=== PATIENT | male | born 1960 | race Caucasian/White ===

== ENCOUNTER 2022-10-02 05:38 | Outpatient (CLI) | payer BC ==
[~2022-10-02] VITALS: Ht 182.8 cm; Wt 93.0 kg
[2022-10-03] MEDS ORDERED: CETI10CA PO (16:40)
[2022-10-03] MEDS ORDERED: ZINC50TA51 PO (16:40)
[2022-10-03] MEDS ORDERED: VALA500T7 PO (16:40)
[2022-10-03] MEDS ORDERED: ASPI81TA16 PO (16:40)
[2022-10-03] MEDS ORDERED: AMLO-250 PO (16:40)
[2022-10-03] MEDS ORDERED: LISI40TA9 PO (16:40)
== END 2022-10-03 16:43 | disposition home or self-care (01) ==
LOC: PREOP 05:38
PROVIDERS: ATTEND Surgery
DX: Z01.818 Encounter for other preprocedural examination (principal)

== ENCOUNTER 2022-10-09 11:34 | Day surgery (SDC) | payer BC ==
[~2022-10-09] VITALS: Ht 182.8 cm; Wt 93.0 kg
[2022-10-09] VITALS (11 sets, daily range): BP systolic 117–163; BP diastolic 77–104
[~2022-10-09 11:34] MED LIST: AMLO-250 PO; ASPI81TA16 PO; CETI10CA PO; LISI40TA9 PO; VALA500T7 PO; ZINC50TA51 PO
[2022-10-09] MEDS ORDERED: ceFAZolin INJECTION 2,000 MG in NS (IVPB) 50 ML IV ONE (11:45)
--- NOTE | 2022-10-09 12:16 | Progress Note-Pre Operative ---
Pre-Operative Progress Note Date H&P Reviewed: Oct 09, 2022 Time H&P Reviewed: 12:15 History & Physical: H&P Reviewed, Patient Examed, No changes noted Pre-Operative Diagnosis: Umbilical hernia VEENA MARCOS LINE INSTALLER TROLLEY Oct 09, 2022 12:16
[2022-10-09] MEDS: LACTATED RINGERS 1,000 ML IV PRN ×2 (12:28→13:59)
[2022-10-09] MEDS ORDERED: proPOfol 200 MG/20 ML (DIPRIVAN) VIAL IV ONE (12:37)
[2022-10-09] MEDS ORDERED: LIDOCAINE/EPI 1%-1:100,000 (XYLOCAINE) 10 ML ONE ×2 (12:37→12:55)
[2022-10-09] MEDS ORDERED: fentaNYL INJ 100 MCG/2 ML AMP ONE (12:37)
[2022-10-09] MEDS ORDERED: ROCURONIUM 10 MG/ML 5 ML SYRINGE IV ONE (12:37)
[2022-10-09] MEDS ORDERED: ONDANSETRON 4 MG/2 ML (SDV) Z0FRAN ONE ×2 (12:37→16:48)
[2022-10-09] MEDS ORDERED: LIDOCAINE PF 2% 5 ML (XYLOCAINE) VIAL ONE (12:37)
[2022-10-09] MEDS ORDERED: MIDAZOLAM 2 MG/2 ML (VERSED) VIAL ONE (12:38)
[2022-10-09] MEDS ORDERED: morphine INJ 10 MG/ML 1ML (SYR OR VIAL) IVP PRN ×2 (12:45)
[2022-10-09] MEDS ORDERED: oxyCODONE/APAP 5/325MG (PERCOCET 5) TABLET PO PRN (12:45)
[2022-10-09] MEDS ORDERED: ACETAMINOPHEN 325 MG TABLET PO PRN (12:45)
[2022-10-09] MEDS ORDERED: HYDR-3817 PO (12:45)
[2022-10-09] MEDS ORDERED: ONDANSETRON 4 MG/2 ML (SDV) Z0FRAN IVP PRN ×2 (12:45→14:00)
--- NOTE | 2022-10-09 12:45 | Discharge Inst-Surgical ---
D/C Lap Instructions-KARAN New, Converted, or Re-Newed RX: RX on Chart Follow Up Appt in 2 weeks Activity as tolerated No driving for 24 hours No driving while on pain medications Incentive Spirometry use every 2 hours while awake Regular Diet Symptoms to Report: Fever over 101 degree F, Nausea/Vomiting Infection Signs and Symptoms to report: Increased redness, Foul odor of wound, Increased drainage Bathing instructions: May shower Operative Area Clean/Dry; Keep incision clean/dry If any problems/questions: Contact your physician or go to Emergency Room ANN RUSSO MD Oct 09, 2022 12:45
--- NOTE | 2022-10-09 13:41 | Progress Note-Post Operative ---
Post-Operative Progess Note Surgeon (s)/Patrol Captain (s) Surgeon ANN RUSSO MD Patrol Captain: dangelo collins BOX MACHINE OPERATOR Pre-Operative Diagnosis Umbilical hernia Post-Operative Diagnosis same Procedure & Operative Findings Date of Procedure 10/09/22 Procedure Performed/Findings open umbilical hernia repair with mesh. Anesthesia Type get Estimated Blood Loss Estimated blood loss (mL): minimal Specimens/Packing Specimens Removed none ANN RUSSO MD Oct 09, 2022 13:41
[2022-10-09] MEDS ORDERED: SEVOFLURANE (ULTANE) 15 ML INHAL SOLN ONE (13:47)
[2022-10-09] MEDS ORDERED: HYDROmorphone 2 MG/ML VIAL (DILAUDID) IV ONE (14:00)
[2022-10-09] MEDS ORDERED: PROMETHAZINE INJ 25 MG/ML (PHENERGAN) AMP IVP ONE (14:00)
[2022-10-09] MEDS ORDERED: MEPERIDINE (DEMEROL) INJ 50 MG/ML IVP ONE (14:00)
[2022-10-09] MEDS ORDERED: morphine INJ 10 MG/ML 1ML (SYR OR VIAL) IVP ONE (14:00)
[2022-10-09] MEDS ORDERED: morphine INJ 10 MG/ML 1ML (SYR OR VIAL) ONE (14:02)
--- NOTE | 2022-10-09 14:55 | Anesthesia-General Post-Op ---
General Patient Condition Mental Status/LOC: Same as Preop Cardiovascular: Satisfactory Nausea/Vomiting: Absent Respiratory: Satisfactory Pain: Controlled Complications: Absent Post Op Complications Complications None Follow Up Care/Instructions Patient Instructions None needed. Anesthesia/Patient Condition Patient Condition Patient is doing well, no complaints, stable vital signs, no apparent adverse anesthesia problems. No complications reported per nursing. HILDA RAIN CRNA Oct 09, 2022 14:55
[2022-10-09] MEDS ORDERED: ONDANSETRON 4 MG/2 ML (SDV) Z0FRAN IVP ONE (16:45)
--- NOTE | 2022-10-09 20:38 | OPERATIVE REPORT ---
DATE OF SERVICE: 10/09/2022 PREOPERATIVE DIAGNOSIS: Symptomatic reducible umbilical hernia. POSTOPERATIVE DIAGNOSIS: Symptomatic reducible umbilical hernia. PROCEDURE: Open umbilical hernia repair with mesh. SURGEON:. Ann Russo MD CHARACTER ACTOR: Brennan Myrick APRN ANESTHESIA: General endotracheal. ESTIMATED BLOOD LOSS: Minimal. FINDINGS: A small umbilical defect with preperitoneal fat within the hernia sac with the fascial defect approximately 1.5 cm in size. DISPOSITION: The patient tolerated the procedure well. INDICATIONS: The patient is a 62-year-old male who has had a known umbilical hernia for the past 3 years. He reports that this was initially small and not symptomatic; however, over the years, this has grown larger in size and become more painful. He states that he is otherwise doing well and tolerating a regular diet and having normal bowel movements. Upon examination in the office, he was found to have a reducible umbilical hernia, tender to palpation. DESCRIPTION OF PROCEDURE: The patient was brought to the operating room and laid supine on the table. After adequate IV pain and sedative medications and general endotracheal intubation, the abdomen was prepped and draped in standard surgical fashion. 0.5% Marcaine with epinephrine was then used to anesthetize the overlying skin in the supraumbilical rim. A crescent-shaped skin incision was made using a #15 blade. The subcutaneous tissue was then dissected using electrocautery and the hernia sac identified and completely dissected out using electrocautery. Hernia sac was then opened using Metzenbaum scissors. There was only preperitoneal fat within the hernia sac. This preperitoneal fat as well as the hernia sac was then excised under direct visualization using electrocautery with visualization of good hemostasis. The fascial defect was only approximately 1.5 cm in size. A 6 cm round coated polypropylene mesh was then placed in the defect and sutured in a transfascial manner to the mesh using an interrupted 0 Prolene sutures. Good hemostasis was observed. The umbilicus was then imbricated to the mesh using 3-0 Vicryl interrupted sutures. The subcutaneous tissue was then reapproximated with the same suture and the skin was closed using 4-0 Monocryl running subcuticular suture. The wound was then cleaned and covered with Dermabond, followed by tonsil sponges, 4 x 4 gauze, large Op-Site and abdominal binder. The patient tolerated the procedure well. We will start IV and oral pain medication as well as clear liquid diet. Once he is tolerating clears with good pain control with oral pain medications, ambulating well, we will discharge him home. We will instruct him to also do no heavy lifting or exertion for the next 2 weeks and to continue to wear the abdominal binder, both day and night, only to remove when showering. Job ID: [id number] DocumentID: [id number] Dictated Date: 10/09/2022 13:46:02 Live Truck Operator Date: 10/09/2022 20:37:00 Dictated By: ANN RUSSO MD
== END 2022-10-09 17:25 | disposition home or self-care (01) ==
LOC: SDC 11:34
PROVIDERS: ATTEND Surgery
DX: K42.9 Umbilical hernia without obstruction or gangrene (principal)
CPT/HCPCS: 49585; 87081; C1781